=== PATIENT | female | born 1945 ===

== ENCOUNTER → 2022-07-07 | Outpatient (CLI) | payer MEDICARE | LOC: PLD 14:04 → LAB SHORT 14:04 | DX: R21 Rash and other nonspecific skin eruption (principal) | CPT/HCPCS: 88312 ==

== ENCOUNTER → 2022-07-07 | Outpatient (CLI) | payer MEDICARE | END | disposition home or self-care (01) | LOC: LAB 10:15 → LAB SHORT 10:15 | DX: R21 Rash and other nonspecific skin eruption (principal) | CPT/HCPCS: 87070; 87205 ==